=== PATIENT | male | born 1955 | race Caucasian/White ===

== ENCOUNTER → 2017-05-02 | Outpatient (CLI) | payer BC | END | disposition home or self-care (01) | LOC: GMAL 17:39 | PROVIDERS: ATTEND Family Medicine | DX: I83.028 Varicose veins of left lower extremity with ulcer other part of lower leg (principal) ==

== ENCOUNTER → 2019-04-24 | Outpatient (CLI) | payer MEDICARE, BC | LOC: GMAL 11:08 | PROVIDERS: ATTEND Family Medicine | DX: D51.3 Other dietary vitamin B12 deficiency anemia (principal); E78.49 Other hyperlipidemia; R53.83 Other fatigue; E55.9 Vitamin D deficiency, unspecified; Z12.5 Encounter for screening for malignant neoplasm of prostate; Z79.899 Other long term (current) drug therapy | CPT/HCPCS: 82306; 82607; 84443; G0103 ==

== ENCOUNTER → 2020-06-07 | Outpatient (CLI) | payer MEDICARE, BC | LOC: GMAL 11:22 | PROVIDERS: ATTEND Family Medicine | DX: D51.3 Other dietary vitamin B12 deficiency anemia (principal); R53.83 Other fatigue; E55.9 Vitamin D deficiency, unspecified; Z12.5 Encounter for screening for malignant neoplasm of prostate; Z79.899 Other long term (current) drug therapy; E78.49 Other hyperlipidemia | CPT/HCPCS: 82306; 82607; 84439; 84443; 84481; G0103 ==